=== PATIENT | male | born 1990 | race Caucasian/White ===

== ENCOUNTER 2023-05-16 14:48 | Emergency (ER) | payer BC, SELFPAY ==
[2023-05-16 14:56] VITALS: BP 160/98; PULSE 76; TEMP 37.1; O2SAT 97; BMI 31.6
--- NOTE | 2023-05-16 15:31 | ED_ITS ---
HPI - Abdominal Pain General Chief Complaint: Abdominal Pain Stated Complaint: blood in stool/abdominal pain Time Seen by Provider: 05/16/23 15:15 Source: patient and family Mode of arrival: walk-in Limitations: no limitations History of Present Illness HPI narrative: This patient is here with his complaining of abdominal pain. Relatively prolonged complicated history. He has a family doctor in [place] who referred him to a mobile unit assistant in [place]. He has been having this lower abdominal pain off and on a couple times during the week for at least 1 year. He has been passing blood with bowel movements for over 2 years according to his new . He came in today because the amount of blood in the past seem to be a little bit more and has been having increasing cramping. Historically he had a lot of acid reflux symptoms and was placed on omeprazole at least a year ago and has been doing better. He has never had upper or lower endoscopy. He uses NSAIDs very sporadically and not on a regular basis. Denies any alcohol intake at all. He does not take any aspirin products. There is no family history of cancer. He says he did have pain when he had a bowel movement today at the rectal area. He does not have any other bleeding. To his knowledge she is otherwise in good health. Related Data Home Medications ?Medication ?Instructions ?Recorded ?Confirmed omeprazole 20 mg capsule,delayed 20 mg PO DAILY 05/16/23 05/16/23 release Allergies Allergy/AdvReac Type Severity Reaction Status Date / Time Sulfa (Sulfonamide Allergy Severe Anaphylaxis Verified 05/16/23 14:55 Antibiotics) Exam Narrative Exam Narrative: Awake alert good historian vital signs are noted. Blood pressure is moderately evaded. Overall he appears very healthy skin and integument are normal with no petechia purpura bruising or evidence of anemia. Conjunctiva is moist and pink. Examination of the abdomen he has no guarding rebound rigidity or peritoneal findings with only minor discomfort in the right mid to right lower quadrant. He has had a previous appendectomy. I do not detect any hepatosplenomegaly. Constitutional Vital Signs, click to edit/add: Last Vital Signs Temp 98.8 F 05/16/23 14:56 Pulse 62 05/16/23 16:11 Resp 18 05/16/23 16:11 BP 126/73 05/16/23 16:11 Pulse Ox 97 05/16/23 16:11 O2 Del Method Room Air 05/16/23 16:11 Course Vital Signs Vital signs: Vital Signs Temperature 98.8 F 05/16/23 14:56 Pulse Rate 76 05/16/23 14:56 Respiratory Rate 16 05/16/23 14:56 Blood Pressure 160/98 H 05/16/23 14:56 Pulse Oximetry 97 05/16/23 14:56 Oxygen Delivery Method Room Air 05/16/23 14:56 Temperature 98.8 F 05/16/23 14:56 Pulse Rate 62 05/16/23 16:11 Respiratory Rate 18 05/16/23 16:11 Blood Pressure 126/73 05/16/23 16:11 Pulse Oximetry 97 05/16/23 16:11 Oxygen Delivery Method Room Air 05/16/23 16:11 MDM - Abdominal Pain MDM Narrative Medical decision making narrative: Rectal examination was done on this patient. There is no evidence of external fissures fistulas trauma bruising foreign bodies. Prostate was nontender. There is acute clear mucus secretions that will be sent for occult blood testing but there is no blood on the exam finger. No masses were palpated. His laboratory testing shows normal BUN, hemoglobin is 15. No evidence of pancreatitis. This patient probably would benefit from endoscopy and this was discussed with them. Will give the name of our surgeon on-call. He will be given a copy of all his laboratory test. This episodic spastic abdominal cramping may or may not be related to his history of 2-year blood loss. Lab Data Labs: Lab Results 05/16/23 Range/Units 15:28 WBC 6.4 (4.0-11.0) 10^3/uL RBC 5.10 (4.70-6.10) 10^6/uL Hgb 15.2 (14.0-18.0) g/dL Hct 44.0 (42.0-54.0) % MCV 86.3 (80.0-94.0) fL MCH 29.8 (25.9-34.0) pg MCHC 34.5 (29.9-35.2) g/dL RDW 11.5 (11.0-15.0) % Plt Count 299 (150-450) 10^3/uL MPV 9.4 L (9.5-13.5) fL Neut % (Auto) 61.3 (43.0-75.0) % Lymph % (Auto) 21.0 (20.5-60.0) % [place] % (Auto) 11.9 (1.7-12.0) % Eos % (Auto) 5.0 (0.9-7.0) % Baso % (Auto) 0.5 (0.2-2.0) % Neut # (Auto) 3.9 (1.4-6.5) 10^3/uL Lymph # (Auto) 1.3 (1.2-3.8) 10^3/uL [place] # (Auto) 0.8 (0.3-0.8) 10^3/uL Eos # (Auto) 0.3 (0.0-0.7) 10^3/uL Baso # (Auto) 0.0 (0.0-0.1) 10^3/uL Abs Immat Gran (auto) 0.02 (0.00-0.03) 10^3/uL Imm/Tot Granulo (auto) 0.3 (0.0-0.5) % PT 10.2 (9.0-11.6) sec INR 0.96 Sodium 141 (136-145) mmol/L Potassium 3.8 (3.5-5.1) mmol/L Chloride 105 (98-107) mmol/L Carbon Dioxide 24.7 (21.0-32.0) mmol/L Anion Gap 15.1 BUN 22.0 H (7.0-18.0) mg/dL Creatinine 1.06 (0.70-1.30) mg/dL Est GFR ( Amer) >60 (>=60) Est GFR (Non-Af Amer) >60 (>=60) BUN/Creatinine Ratio 20.8 Glucose 91 (74-106) mg/dL Calcium 8.4 L (8.5-10.1) mg/dL Total Bilirubin 0.3 (0.2-1.0) mg/dL AST 21 (15-37) U/L ALT 49 (16-63) U/L Alkaline Phosphatase 82 (46-116) U/L Total Protein 7.3 (6.4-8.2) g/dL Albumin 4.1 (3.4-5.0) g/dL Globulin 3.2 g/dL Albumin/Globulin Ratio 1.3 Lipase 36.0 (16.0-77.0) U/L Blood Type A Positive Antibody Screen Negative Discharge Plan Discharge Stand Alone Forms: Portal Instructions Chief Complaint: Abdominal Pain Clinical Impression: Bright red rectal bleeding Patient Disposition: Home, Self-Care Time of Disposition Decision: 16:47 Prescriptions / Home Meds: No Action omeprazole 20 mg capsule,delayed release(DR/EC) 20 mg PO DAILY Print Language: [place]ese Additional Instructions: Take a copy of your lab, have your family doctor refer for GI evaluation or follow-up with Dr. roblero Referrals: Physician,Non-Staff, [Primary Care Provider] - 1 week
[2023-05-16 15:45] LABS: Basophils Percent Auto 0.5 % (0.2-2.0); Eosinophils Absolute Auto 0.3 10^3/uL (0.0-0.7); Hemoglobin 15.2 g/dL (14.0-18.0); Immature Granulocytes Abs Auto 0.02 10^3/uL (0.00-0.03); Immature Granulocytes Pct Auto 0.3 % (0.0-0.5); Lymphocytes Absolute Auto 1.3 10^3/uL (1.2-3.8); Mean Corpuscular HGB Conc 34.5 g/dL (29.9-35.2); Mean Corpuscular Hemoglobin 29.8 pg (25.9-34.0); Mean Corpuscular Volume 86.3 fL (80.0-94.0); Mean Platelet Volume 9.4 fL (9.5-13.5); Monocytes Absolute Auto 0.8 10^3/uL (0.3-0.8); Monocytes Percent Auto 11.9 % (1.7-12.0); Neutrophils Absolute Auto 3.9 10^3/uL (1.4-6.5); Neutrophils Percent Auto 61.3 % (43.0-75.0); Platelet Count 299 10^3/uL (150-450); Red Cell Distribution Width 11.5 % (11.0-15.0); White Blood Count 6.4 10^3/uL (4.0-11.0)
[2023-05-16 15:58] LABS: INR 0.96; Prothrombin Time 10.2 sec (9.0-11.6)
[2023-05-16] MEDS: 0.9 % SODIUM CHLORIDE 1,000 ML 999 ML IV (16:09)
[2023-05-16 16:11] VITALS: BP 126/73; PULSE 62; O2SAT 97
[2023-05-16 16:13] LABS: Alanine Aminotransferase 49 U/L (16-63); Albumin Globulin Ratio 1.3; Albumin Level 4.1 g/dL (3.4-5.0); Alkaline Phosphatase 82 U/L (46-116); Anion Gap 15.1; Aspartate Amino Transferase 21 U/L (15-37); BUN Creatinine Ratio 20.8; Bilirubin Total 0.3 mg/dL (0.2-1.0); Calcium 8.4 mg/dL (8.5-10.1); Carbon Dioxide 24.7 mmol/L (21.0-32.0); Chloride 105 mmol/L (98-107); Estimated GFR (African America >60 (>=60); Estimated GFR (Non-African Ame >60 (>=60); Globulin 3.2 g/dL; Glucose 91 mg/dL (74-106); Potassium 3.8 mmol/L (3.5-5.1); Sodium 141 mmol/L (136-145); Total Protein 7.3 g/dL (6.4-8.2)
== END 2023-05-16 16:56 | disposition home or self-care (01) ==
PROVIDERS: Emergency Provider Emergency Medicine Emergency Medical Services
DX: K62.5 Hemorrhage of anus and rectum (principal); Z79.899 Other long term (current) drug therapy
CPT/HCPCS: 36415; 80053; 83690; 85025; 85610; 86850; 86900; 86901; 99284